=== PATIENT | female | born 1965 | race Caucasian/White ===

== ENCOUNTER → 2016-07-22 | Outpatient (CLI) | payer BC ==
--- NOTE | 2016-07-22 14:22 | US ---
EXAM DESCRIPTION: Abdomen,Complete CLINICAL HISTORY: GALLSTONES COMPARISON: None. TECHNIQUE: Real-time sonographic images of the abdomen are obtained. FINDINGS: Pancreas is unremarkable. The right lobe of the liver measures 14.1 cm. The liver is diffusely homogeneous and normal in echogenicity. No focal hepatic mass is seen. The gallbladder is normally distended and contains multiple nonmobile foci of increased echogenicity without posterior acoustic shadowing. No gallbladder wall thickening or pericholecystic fluid is seen. The common bile duct measures 3.6 mm in greatest diameter. The right kidney measures 12.0 x 5.1 x 5.5 cm. The left kidney measures 11.2 x 6.4 x 6.0 cm. Both kidneys show normal renal cortical echogenicity. No hydronephrosis is seen. The spleen measures 9.8 cm. Visualized IVC and abdominal aorta are within normal limits. IMPRESSION: Several probable gallbladder polyps versus nonshadowing, nonmobile/adherent Gallstones are seen in the gallbladder. Electronically signed by: Emil Wall MD 07/22/2016 2:19 PM CDT
== END | disposition home or self-care (01) ==
LOC: US 08:32
PROVIDERS: ATTEND Family Medicine
DX: K80.80 Other cholelithiasis without obstruction (principal)

== ENCOUNTER → 2017-04-02 | Outpatient (CLI) | payer BC | END | disposition home or self-care (01) | LOC: MAMMO 08:57 | PROVIDERS: ATTEND Obstetrics & Gynecology | DX: Z01.411 Encounter for gynecological examination (general) (routine) with abnormal findings (principal) ==

== ENCOUNTER → 2019-04-13 | Outpatient (CLI) | payer BC | LOC: GMAJ 14:23 | PROVIDERS: ATTEND Family Medicine | DX: I10 Essential (primary) hypertension (principal); Z79.899 Other long term (current) drug therapy ==